=== PATIENT | male | born 1955 ===

== ENCOUNTER 2019-01-28 11:15 | Outpatient (RCR) | payer BC ==
[~2019-01-28 11:15] MED LIST: ASPIRIN 81M81 MG/TA2 PO; HYZAAR 12.5 MG-1 TAB PO; LIPITOR 10MG10 MG PO; SYNTHROID0.125 MG/T PO
== END 2019-02-17 | disposition home or self-care (01) ==
LOC: MKS.ESL.PT
DX: S33.100A Subluxation of unspecified lumbar vertebra, initial encounter (principal); M51.17 Intervertebral disc disorders with radiculopathy, lumbosacral region

== ENCOUNTER 2021-07-11 11:19 | Day surgery (SDC) | payer BC ==
[~2021-07-11] VITALS: Ht 167.6 cm; Wt 75.0 kg
[2021-07-11] VITALS (15 sets, daily range): BP systolic 113–151; BP diastolic 68–104; PULSE 64–78; TEMP 97.4–98.3
[2021-07-11 12:18] LABS: HEMATOCRIT 38.5 % (42.0-52.0); HEMOGLOBIN 13.6 g/dl (13.5-18.0); MEAN CELL VOLUME 88 fl (80.0-100.0); MEAN CORPUSCULAR HEMOGLOBIN 31 pg (27-31); MEAN CORPUSCULAR HGB CONC 35 g/dl (33.0-37.0); MEAN PLATELET VOLUME 8.8 fl (7.4-10.4); PLATELET COUNT 286 K/mm3 (130-400); RED BLOOD COUNT 4.37 M/mm3 (4.20-5.60); REDCELL DISTRIBUTION WIDTH-CV 13.1 % (11.5-14.5)
[2021-07-11 12:24] LABS: PROTHROMBIN TIME 11.2 SECONDS (9.7-12.8)
[2021-07-11 12:26] LABS: CALCIUM 9.1 mg/dL (8.4-10.2); CREATININE, serum 0.97 mg/dL (0.72-1.25); POTASSIUM 3.5 mmol/L (3.5-4.5)
[2021-07-11 12:27] LABS: PARTIAL THROMBOPLASTIN TIME 32.1 SECONDS (26.0-37.0)
[2021-07-11] MEDS ORDERED: BENICAR HCT 251 TAB PO (12:35)
[2021-07-11] MEDS ORDERED: TOPROL XL 25MG25 MG PO (12:36)
[2021-07-11] MEDS ORDERED: IMDUR 60MG60 MG/TAB PO (12:36)
[2021-07-11] MEDS ORDERED: LIPITOR20 MG PO (12:36)
[2021-07-11] MEDS ORDERED: TURMERIC500 MG PO (12:37)
--- NOTE | 2021-07-11 13:02 | NUR ---
SEE MERGE FOR ALL MEDICATION ADMINISTRATION TIMES, INTA AND POST SEDATION ASSESSMENTS
--- NOTE | 2021-07-11 17:18 | NUR ---
ASSUMED CARE FOR EUN RN, 3ML AIR REMOVED FROM RADIAL BAND.
--- NOTE | 2021-07-11 18:05 | NUR ---
3 MORE ML AIR REMOVED FROM BAND. 7ML LEFT. NO NEW FIRMNESS AT SITE.
--- NOTE | 2021-07-11 18:44 | NUR ---
4ML OF AIR REMOVED. SITE SOFT. 3ML LEFT
--- NOTE | 2021-07-11 19:51 | NUR ---
RECEIVED CHANGE OF SHIFT REPORT FROM DAY SHIFT RN.
--- NOTE | 2021-07-11 20:11 | NUR ---
RELEASE 1 ML FROM RADIAL BAND WITH NO IMMEDIATE BLEEDING. PATIENT REQUESTING PAIN MEDS FOR HO CHRONIC BACK DISCOMFORT. SEE MAR FOR MEDS GIVEN. PATIENT STATED HE HAD ALREADY TAKEN HIS LIPITOR MED FROM HOME. ENCOURAGED PATIENT TO TAKE MEDS THAT DR AMBROSIO HAD ORDERED FOR PATIENT TO TAKE WHILE IN HOSPITAL WITH PATIENT VERBALIZING UNDERSTANDING. MEDS FROM HOME PUT AWAY IN ROOM CLOSET FOR SAFE KEEPING. PATIENT ALSO REPORTED SOME CONCERN REGARDING STARTING ON NEW MED [place] AND INFORMED PATIENT MED INFO WILL BE PROVIDED IN PRINTED FORM FOR HIM TO READ OVER.
--- NOTE | 2021-07-11 23:00 | NUR ---
LAST REMAINING 1 ML AIR REMOVED FROM RADIAL BAND. RADIAL HEART CATH SITE CLEAR/NO HEMATOMA/NO BLEEDING. PATIENT WITH C/O PAIN OR SOA AT THIS TIME. PATIENT UP AD NATACHA WITH NO REPORTED PROBLEMS OR CONCERNS.
--- NOTE | 2021-07-12 01:25 | NUR ---
NO BLEEDING TO RIGHT RADIAL HEART CATH SITE, RADIAL BAND REMOVED AND LIGHT DRSG/BANDAID APPLIED. PATIENT DENIES ANY DISCOMFORT. TELE IN PLACE. SALINE LOCK IN PLACE.
[2021-07-12 04:47] VITALS: BP 130/82; PULSE 86; TEMP 97.4
[2021-07-12 05:59] LABS: HEMATOCRIT 40.9 % (42.0-52.0); HEMOGLOBIN 14.5 g/dl (13.5-18.0); MEAN CELL VOLUME 86 fl (80.0-100.0); MEAN CORPUSCULAR HEMOGLOBIN 31 pg (27-31); MEAN CORPUSCULAR HGB CONC 36 g/dl (33.0-37.0); MEAN PLATELET VOLUME 8.9 fl (7.4-10.4); PLATELET COUNT 303 K/mm3 (130-400); RED BLOOD COUNT 4.75 M/mm3 (4.20-5.60); REDCELL DISTRIBUTION WIDTH-CV 12.6 % (11.5-14.5)
[2021-07-12 06:18] LABS: CALCIUM 9.1 mg/dL (8.4-10.2); CREATININE, serum 1.04 mg/dL (0.72-1.25); POTASSIUM 3.6 mmol/L (3.5-4.5)
[2021-07-12 06:48] LABS: BAND 2 % (0-10); LYMPHOCYTE 12 % (20.0-51.0); NEUTROPHILS 86 % (42.0-75.2)
--- NOTE | 2021-07-12 06:48 | NUR ---
CHANGE OF SHIFT REPORT GIVEN TO DAY SHIFT RNNICHO.
[2021-07-12 07:35] VITALS: BP 145/86; PULSE 90; TEMP 97.7
--- NOTE | 2021-07-12 08:31 | NUR ---
Assessment completed, alert/oriented, vital signs stable, denies any pain or discomfort, right radial access site is soft and non-tender with No sign of hematoma, distal pulses are palpable, heart RRR/SR on tele, denies any SOA or resp.difficulty and lungs CTA, patient stated he feels really good this morning and has been up ambulating in the hallway, he has had breakfast and morning meds given, education provided on Brillinta, he denies other needs or concerns at this time, I anticipate discharge home today, will continue to monitor
--- NOTE | 2021-07-12 10:24 | NUR ---
Staff reviewed Phase 1 cardiac rehab education with patient- cath site care, monitoring for infection, and when to call MD. Staff also reviewed CVD risk factors and ways to modify. Patient verbalized understanding. Referral to [facility] [place]. Appointment scheduled for July 19 at 11am.
[2021-07-12] MEDS ORDERED: LIPITOR 80MG80 MG PO (10:25)
[2021-07-12] MEDS ORDERED: BRILINTA90 MG PO (10:25)
[2021-07-12] MEDS ORDERED: IMDUR 60MG60 MG/TAB PO (10:26)
--- NOTE | 2021-07-12 11:00 | NUR ---
Discharge orders discussed with patient, instructed to follow up with Cardiolgoy as we have scheduled for him, instructed to take meds as prescribed, scripts for Brillinta/lipitor/Imdur sent to pharmacy for him, IV and tele removed, discussed acitivty and bathing restrictions r/t heart cath procecure access site, he denied other needs or questions, leaving with his and i escorted him ot the door
== END 2021-07-12 12:16 | disposition home or self-care (01) ==
LOC: COL.CAR 11:19 → MEDICAL 17:17 → COL.CAR 07-12 12:16
PROVIDERS: Internal Medicine Cardiovascular Disease
DX: I25.10 Atherosclerotic heart disease of native coronary artery without angina pectoris (principal); I34.0 Nonrheumatic mitral (valve) insufficiency; I77.810 Thoracic aortic ectasia; I10 Essential (primary) hypertension; I25.9 Chronic ischemic heart disease, unspecified; R94.39 Abnormal result of other cardiovascular function study; E78.2 Mixed hyperlipidemia; R06.09 Other forms of dyspnea; Z79.82 Long term (current) use of aspirin; Z79.899 Other long term (current) drug therapy; Z95.5 Presence of coronary angioplasty implant and graft; Z82.49 Family history of ischemic heart disease and other diseases of the circulatory system
CPT/HCPCS: OP; C1725; C1769; C1874; C1887; C9600; J0583; J1200; J1644; J2250; J2930; J3010

== ENCOUNTER 2021-07-28 14:25 | Outpatient (RCR) | payer BC ==
[~2021-07-28 14:25] MED LIST changes: +BENICAR HCT 251 TAB PO; +BRILINTA90 MG PO; +IMDUR 60MG60 MG/TAB PO; +LIPITOR 80MG80 MG PO; +LIPITOR20 MG PO; +TOPROL XL 25MG25 MG PO; +TURMERIC500 MG PO
== END 2021-08-01 | disposition home or self-care (01) ==
LOC: COL.CR
DX: Z48.812 Encounter for surgical aftercare following surgery on the circulatory system (principal); Z95.5 Presence of coronary angioplasty implant and graft

== ENCOUNTER 2021-08-28 11:40 | Outpatient (RCR) | payer BC | END 2021-08-31 | disposition home or self-care (01) | LOC: COL.CR | DX: Z48.812 Encounter for surgical aftercare following surgery on the circulatory system (principal); Z95.5 Presence of coronary angioplasty implant and graft ==

== ENCOUNTER 2021-09-29 13:09 | Outpatient (RCR) | payer SELFPAY | END 2021-10-01 | LOC: COL.CR | DX: Z29.8 Encounter for other specified prophylactic measures (principal) ==

== ENCOUNTER 2021-10-16 15:05 | Outpatient (RCR) | payer SELFPAY | END 2021-11-01 | LOC: COL.CR | DX: Z29.8 Encounter for other specified prophylactic measures (principal) ==